=== PATIENT | male | born 1960 | race Caucasian/White ===

== ENCOUNTER 2018-08-16 14:23 | Emergency (ER) | payer SELFPAY ==
[~2018-08-16 14:23] MED LIST: CARISOPRODOL; HYDROCODONE; NORCO 10-325 T1 EACH PO; SOMA350 MG PO; TRAMADOL; ULTRAM50 MG PO
== END 2018-08-16 16:15 | disposition short-term general hospital (02) ==
LOC: ER 14:23
DX: R07.9 Chest pain, unspecified (principal)

== ENCOUNTER → 2020-08-05 | Day surgery (SDC) | payer MEDICARE, OTHER ==
[~2020-08-05] VITALS: Ht 172.7 cm; Wt 63.5 kg
[~2020-08-05] MED LIST changes: +ASPIRIN EC81 MG PO; +CLOPIDOGREL75 MG PO; +FLOMAX0.4 MG PO; +GABAPENTIN300 MG PO; +LIDOCAINE 1% W/EPINEPHRINE 20 ML VIAL ONE; +LIPITOR20 MG PO; +METHOCARBAMOL750 MG PO; +METOPROLOL SUCC25 MG PO; +RANEXA500 MG PO; +TYLENOL # 31 EA PO
--- NOTE | 2020-08-05 10:46 | Operative Report ---
DATE OF PROCEDURE: 08/05/2020 SURGEON: Jaylon Zaldivar MD INDICATION: Palpitations. PROCEDURES PERFORMED: Insertable loop recorder. COMPLICATIONS: None. RECOMMENDATIONS: Remote monitoring. PROCEDURE IN DETAIL: Left anterior chest was anesthetized using subcutaneous lidocaine. A [employer] LINQ, serial #[id number] was inserted subcutaneously. No complication. Skin approximated using Dermabond. The patient was discharged home same day. Jaylon Zaldivar MD KSB/MODL /[id number]
== END | disposition home or self-care (01) ==
LOC: CATH LAB 06:28
PROVIDERS: ATTEND Internal Medicine Interventional Cardiology
DX: R00.2 Palpitations (principal); I25.118 Atherosclerotic heart disease of native coronary artery with other forms of angina pectoris; I49.3 Ventricular premature depolarization; I11.0 Hypertensive heart disease with heart failure; I50.22 Chronic systolic (congestive) heart failure; Z01.812 Encounter for preprocedural laboratory examination; Z11.59 Encounter for screening for other viral diseases; Z79.82 Long term (current) use of aspirin; Z82.49 Family history of ischemic heart disease and other diseases of the circulatory system
CPT/HCPCS: 33285; C1764; U0002